=== PATIENT | female | born 1980 | race Caucasian/White ===

== ENCOUNTER → 2017-01-17 | Outpatient (CLI) | payer OTHER ==
--- NOTE | 2017-01-17 16:26 | RAD ---
Abdomen, 2 views, 01/17/2017: History: Abdominal pain Gas is present in large and small bowel in a nonspecific pattern. There is a moderate amount of stool scattered throughout the colon. No free air seen in the abdomen. There is no evidence of organomegaly or abnormal abdominal calcification. IMPRESSION: No acute abdominal abnormality is detected.
== END | disposition home or self-care (01) ==
LOC: DXRAD 13:10
PROVIDERS: ATTEND Family Medicine
DX: R10.9 Unspecified abdominal pain (principal)
CPT/HCPCS: 74020

== ENCOUNTER 2017-01-19 15:01 | Emergency (ER) | payer OTHER ==
[~2017-01-19] VITALS: Ht 165.1 cm; Wt 105.2 kg
[2017-01-19] MEDS ORDERED: fentaNYL PF 100 MCG/2 ML VIAL IV PRN (15:45)
[2017-01-19 15:49] LABS: BILIRUBIN,URINE NEG (NEG); CLARITY,URINE CLOUDY; COLOR,URINE YELLOW; GLUCOSE,URINE NEG (NEG); NITRITE,URINE NEG (NEG); UROBILINOGEN,URINE 0.2 mg/dL (0.2 mg/dL)
[2017-01-19 15:50] LABS: BACTERIA,URINE FEW /HPF (0-FEW); SQUAMOUS EPITHELIAL CELL,UR MOD /LPF
[2017-01-19 15:51] LABS: U PREG PATIENT NEGATIVE (NEG)
[2017-01-19] MEDS ORDERED: ONDANSETRON PF 4 MG/2 ML VIAL. IV ONE (16:00)
[2017-01-19] MEDS ORDERED: KETOROLAC 30 MG/ML VIAL. IV ONE (16:00)
[2017-01-19] MEDS ORDERED: cefTRIAXone SODIUM 1 GM VIAL IV ONE (16:04)
[2017-01-19] MEDS ORDERED: IV NORMAL SALINE 50ML 50 ML ONE (16:04)
[2017-01-19 16:28] VITALS: BP 122/78
[2017-01-19 16:28] LABS: BASO # 0.1 x10^3/uL (0.0-0.2); BASO % 2 % (0-3); EOS # 0.3 x10^3/uL (0.0-0.7); EOS % 3 % (0-3); HEMATOCRIT 38.8 % (36.0-47.0); HEMOGLOBIN 12.9 g/dL (12.0-15.5); LYMPH # 2.7 x10^3/uL (1.0-4.8); LYMPH % 33 % (24-48); MEAN CORPUSCULAR HEMOGLOBIN 30 pg (25-35); MEAN CORPUSCULAR HGB CONC 33 g/dL (31-37); MEAN CORPUSCULAR VOLUME 90 fL (79-100); MONO # 0.6 x10^3/uL (0.0-1.1); MONO % 8 % (0-9); NEUT # 4.6 x10^3uL (1.8-7.7); NEUT % 55 % (31-73); PLATELET COUNT 259 x10^3/uL (140-400); RED BLOOD COUNT 4.31 x10^6/uL (3.50-5.40); RED CELL DISTRIBUTION WIDTH 13.4 % (11.5-14.5); WHITE BLOOD COUNT 8.3 x10^3/uL (4.0-11.0)
[2017-01-19 16:38] LABS: ALBUMIN 3.6 g/dL (3.4-5.0); CALCIUM 8.6 mg/dL (8.5-10.1); CREATININE 0.8 mg/dL (0.6-1.0); DIRECT BILIRUBIN 0.1 mg/dL (0.0-0.2); GFR 81.2; POTASSIUM 3.5 mmol/L (3.5-5.1); TOTAL BILIRUBIN 0.2 mg/dL (0.2-1.0); TOTAL PROTEIN 7.4 g/dL (6.4-8.2)
--- NOTE | 2017-01-19 16:42 | RAD ---
Indication left flank pain nausea and vomiting. Axial images through the abdomen and pelvis were obtained. No IV or gastrointestinal contrast was administered. No prior CT imaging of the abdomen or pelvis is available. The lung bases are clear. The liver and spleen appear unremarkable. The gallbladder appears grossly normal. No pancreatic abnormality is seen. There are no adrenal masses. There are no renal calculi seen on either side. There is no hydronephrosis hydroureter or calcification seen along the course of either ureter. An acute finding in the abdomen is not seen. There is mild to moderate periaortic adenopathy in the upper abdomen. The etiology or clinical significance is uncertain. The appendix is seen in the right lower quadrant and appears normal. An acute finding in the pelvis is not seen. IMPRESSION: No acute finding seen in the abdomen or pelvis. Mild to moderate periaortic adenopathy. The clinical significance or etiology of this finding is not certain PQRS Compliance Statement: One or more of the following individualized dose reduction techniques were utilized for this examination: 1. Automated exposure control 2. Adjustment of the mA and/or kV according to patient size 3. Use of iterative reconstruction technique
--- NOTE | 2017-01-19 17:02 | PHYS DOC ---
General Chief Complaint: FLANK PAIN Stated Complaint: LEFT FLANK PAIN Time Seen by MD: 15:13 Source: patient Exam Limitations: no limitations Problems: History of Present Illness Initial Comments Patient is a 36-year-old female who comes to the emergency department complaining of left flank pain. Patient says she's been battling a virus with recent nausea and vomiting but those symptoms have resolved. She says for the last 3 days she's had left-sided flank pain described as sharp and throbbing. At its worse she says it is 8 out of 10 but her symptoms do come and go intermittently. She says she finds herself unable to find a position of comfort. She saw her doctor Dr. Kirk 3 days ago and was diagnosed with a urinary tract infection and she was prescribed ciprofloxacin. She filled the prescription yesterday and says she has taken a total of 4 doses thus far. She has also taken [id number] Azo which she found to be ineffective and notes that she feels she has seen blood in her urine a few times independent of any discoloration Azo imparts. She is tolerating Cipro well she has no adverse effects. She denies fever chills sweats or myalgias and currently is having no nausea vomiting or diarrhea. She denies unexplained weight loss and night sweats. No dysuria or odor. Timing/Duration: intermittent (3 days) Severity: severe Modifying Factors: improves with other Associated Symptoms: other Allergies: Coded Allergies: No Known Drug Allergies (Unverified , 01/19/17) Past Medical History Medical History: no pertinent history Surgical History: noncontributory (TL, brain) Social History Smoker: cigarettes Alcohol: none Drugs: none Review of Systems Constitutional: denies chills, denies diaphoresis, denies fever, denies malaise Respiratory: denies cough, denies shortness of breath Cardiovascular: denies chest pain, denies palpitations Gastrointestinal: see HPI Genitourinary: see HPI Musculoskeletal: see HPI, denies joint swelling, denies neck pain Psychiatric/Neurological: denies headache, denies numbness, denies paresthesia Physical Exam General Appearance: no apparent distress, obese Eyes: bilateral eye normal inspection, bilateral eye PERRL, bilateral eye EOMI Ear, Nose, Throat: hearing grossly normal, normal ENT inspection, normal pharynx Neck: non-tender, supple Respiratory: normal breath sounds, no respiratory distress Cardiovascular: normal peripheral pulses, regular rate, rhythm Gastrointestinal: normal bowel sounds, non tender, soft, no organomegaly, no pulsatile mass Back: no vertebral tenderness, CVA tenderness (L) Extremities: non-tender, normal inspection 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 PHYSICIAN: SMITHA SHIN DO REASON: left flank pain PROCEDURE: CT ABDOMEN PELVIS WO CONTRAST Indication left flank pain nausea and vomiting. Axial images through the abdomen and pelvis were obtained. No IV or gastrointestinal contrast was administered. No prior CT imaging of the abdomen or pelvis is available. The lung bases are clear. The liver and spleen appear unremarkable. The gallbladder appears grossly normal. No pancreatic abnormality is seen. There are no adrenal masses. There are no renal calculi seen on either side. There is no hydronephrosis hydroureter or calcification seen along the course of either ureter. An acute finding in the abdomen is not seen. There is mild to moderate periaortic adenopathy in the upper abdomen. The etiology or clinical significance is uncertain. The appendix is seen in the right lower quadrant and appears normal. An acute finding in the pelvis is not seen. IMPRESSION: No acute finding seen in the abdomen or pelvis. Mild to moderate periaortic adenopathy. The clinical significance or etiology of this finding is not certain PQRS Compliance Statement: One or more of the following individualized dose reduction techniques were utilized for this examination: 1. Automated exposure control 2. Adjustment of the mA and/or kV according to patient size 3. Use of iterative reconstruction technique DICTATED AND SIGNED BY: YUSEF RAYO MD DATE: 01/19/17 9639 CC: PAUL KIRK MD; SMITHA SHIN DO ~ Lab studies were unremarkable, urinalysis had moderate squamous epithelial contamination and products of infection. Given the positive Oscar sign and the urine findings pyelonephritis is diagnosis. I encouraged her to continue her ciprofloxacin through tomorrow, that would give 72 hours of medication. If no improvement at that time I encouraged her to fill the Bactrim DS prescription and begin that medication discontinuing the Cipro. She expressed agreement and understanding, see departure instructions. Departure Time of Disposition: 16:58 Disposition: 01 HOME, SELF-CARE Diagnosis: left pyelonephritis Condition: GOOD Patient Instructions: Pyelonephritis, Adult, [id number] Additional Instructions: Rest, no strenuous activity. Off work through January 22. Aggressive hydration with Gatorade or water. Continue ciprofloxacin. 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 Prescriptions: Pyridium 100 mg quantity 6, Bactrim DS quantity 20, [place] 7.5 mg quantity 15 Take medications with food. Follow-up with your doctor in 7-10 days for recheck and urine culture results. Return to the ED with new or changing symptoms. SMITHA SHIN DO Jan 19, 2017 17:02
== END 2017-01-19 17:10 | disposition home or self-care (01) ==
LOC: ER 15:01
DX: N12 Tubulo-interstitial nephritis, not specified as acute or chronic (principal); F17.210 Nicotine dependence, cigarettes, uncomplicated
CPT/HCPCS: 36415; 74176; 80048; 80076; 81001; 81025; 83690; 85027; 87086; 96365; 96375; 99285; J0696; J1885; J2405; J3010

== ENCOUNTER → 2017-08-10 | Outpatient (CLI) | payer OTHER ==
--- NOTE | 2017-08-10 11:50 | RAD ---
Abdominal ultrasound, 08/10/2017: History: Abdominal and epigastric pain The gallbladder is within normal limits in size. There is no sonographic evidence of cholelithiasis. The gallbladder krishnamurthy are not thickened. The common hepatic duct is of normal caliber. The visualized portions of the liver, pancreas, spleen and both kidneys are unremarkable. The aorta and inferior vena cava show no abnormality. No free fluid is evident in the abdomen. IMPRESSION: No significant abnormality is detected.
== END | disposition home or self-care (01) ==
LOC: US 09:04
PROVIDERS: ATTEND Physician Assistant
DX: R10.9 Unspecified abdominal pain (principal)
CPT/HCPCS: 76700

== ENCOUNTER 2017-08-16 17:28 | Emergency (ER) | payer OTHER ==
[~2017-08-16] VITALS: Ht 165.1 cm; Wt 117.9 kg
[2017-08-16] MEDS ORDERED: NITROGLYCERIN SUBLINGUAL 0.4 MG BOTTLE OF 25. SL PRN (18:15)
[2017-08-16 18:17] LABS: BASO # 0.1 x10^3/uL (0.0-0.2); BASO % 1 % (0-3); EOS # 0.5 x10^3/uL (0.0-0.7); EOS % 6 % (0-3); HEMATOCRIT 42.7 % (36.0-47.0); HEMOGLOBIN 14.2 g/dL (12.0-15.5); LYMPH # 2.8 x10^3/uL (1.0-4.8); LYMPH % 36 % (24-48); MEAN CORPUSCULAR HEMOGLOBIN 30 pg (25-35); MEAN CORPUSCULAR HGB CONC 33 g/dL (31-37); MEAN CORPUSCULAR VOLUME 90 fL (79-100); MONO # 0.5 x10^3/uL (0.0-1.1); MONO % 6 % (0-9); NEUT % 51 % (31-73); PLATELET COUNT 314 x10^3/uL (140-400); RED BLOOD COUNT 4.76 x10^6/uL (3.50-5.40); RED CELL DISTRIBUTION WIDTH 13.3 % (11.5-14.5); WHITE BLOOD COUNT 7.9 x10^3/uL (4.0-11.0)
[2017-08-16 18:28] LABS: ALBUMIN 4.1 g/dL (3.4-5.0); CALCIUM 9.3 mg/dL (8.5-10.1); CREATININE 0.7 mg/dL (0.6-1.0); GFR 94.2; POTASSIUM 3.9 mmol/L (3.5-5.1); TOTAL BILIRUBIN 0.2 mg/dL (0.2-1.0); TOTAL PROTEIN 8.1 g/dL (6.4-8.2)
[2017-08-16] MEDS ORDERED: ASPIRIN 81 MG TAB.CHEW PO ONE (18:30)
--- NOTE | 2017-08-16 18:59 | PHYS DOC ---
General Chief Complaint: CHEST PAIN Stated Complaint: itching Time Seen by MD: 18:03 Source: patient, old records Exam Limitations: no limitations Problems: History of Present Illness Initial Comments Patient is a 37-year-old female arriving to the emergency department right at 1800 shift change and staff initiated chest pain workup per protocol. Patient "it all started right after my hysterectomy," reports that since her hysterectomy in February she's had intermittent episodes of chest/abdominal and throat burning/discomfort including epigastric discomfort and most the time accompanied by a rash described by the patient as "very itchy hives." Patient has been extensively worked up, she states that she had a recent ultrasound of the gallbladder which was normal (I have obtained results and attached to the chart below) as well as an EGD. Patient states that she was notified over the phone that inflammatory changes were noted on EGD and biopsy results are pending. Patient saw a GI and has a follow-up to go over these results. Patient cannot correlate any foods or medications specifically which incite her symptoms, she describes her chest pain as burning epigastric radiating up her chest and also to the right side of her chest. The symptoms are described as mild to moderate, rashes described as red raised and very itchy off and on her throat or chest and I do observe an allergic type hives rash on the patient's anterior chest. She denies shortness of breath but does experience hoarseness, no cough or wheeze or dyspnea on exertion. No fever chills sweats or myalgias, no nausea, and no left arm or other neck symptoms. "Antacid medications" have helped somewhat in the past and the patient states GI cocktail has also helped but the relief wears off very quickly. Patient follows with Eliu Morillo for PCP. 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 ED vitals: 98.7, 89, 27, 136/79, 100% room air On my evaluation the patient is somewhat anxious, she has a depressed affect and an urticarial allergic type rashes noted on her anterior chest. She is otherwise in no acute distress. PATIENT: DELIA RUIZ ACCOUNT: [id number] : 1980 LOCATION: US AGE: 37 SEX: F EXAM STATUS: REG CLI ORD. PHYSICIAN: NADIRA MORILLO REASON: abd pain epigastric and goes to right side x's~ 1 year PROCEDURE: ABDOMEN COMPLETE Abdominal ultrasound, 08/10/2017: History: Abdominal and epigastric pain The gallbladder is within normal limits in size. There is no sonographic evidence of cholelithiasis. The gallbladder krishnamurthy are not thickened. The common hepatic duct is of normal caliber. The visualized portions of the liver, pancreas, spleen and both kidneys are unremarkable. The aorta and inferior vena cava show no abnormality. No free fluid is evident in the abdomen. IMPRESSION: No significant abnormality is detected. DICTATED AND SIGNED BY: MIROSLAVA CEBALLOS MD DATE: 08/10/17 1146 CC: NADIRA MORILLO; PAUL COTRES MD ~ Timing/Duration: other Severity: moderate Modifying Factors: improves with other Associated Symptoms: rash, other Allergies: Coded Allergies: No Known Drug Allergies (Unverified , 01/19/17) Past Medical History Medical History: GERD (recent EGD waiting results) Surgical History: other (hysterectomy February 2017) Social History Smoker: cigarettes Alcohol: none Drugs: none Review of Systems Constitutional: denies chills, denies diaphoresis, denies fever, denies malaise EENTM: see HPI, denies throat swelling, denies mouth swelling Respiratory: denies cough, denies shortness of breath, denies wheezing Cardiovascular: see HPI, denies palpitations, denies syncope Gastrointestinal: see HPI, denies diarrhea, denies nausea, denies vomiting Musculoskeletal: denies back pain, denies joint swelling, denies neck pain Skin: see HPI Psychiatric/Neurological: denies headache, denies numbness, denies paresthesia Immunological/Allergic: see HPI Physical Exam General Appearance: mild distress (anxious) Ear, Nose, Throat: hearing grossly normal, normal ENT inspection, normal pharynx (no soft tissue swelling noted airway is widely patent) Neck: non-tender, full range of motion, supple (no stridor) Respiratory: normal breath sounds, no respiratory distress Cardiovascular: normal peripheral pulses, regular rate, rhythm Gastrointestinal: normal bowel sounds, non tender, soft Back: no CVA tenderness, no vertebral tenderness Extremities: non-tender, normal inspection Neurologic/Psychiatric: 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 Chest AP: Cardiac silhouette and mediastinal structures appear to be normal no effusions or discrete consolidations no acute cardiopulmonary process. Interpreted by me. 1903: Labs reviewed, eosinophils elevated at 6% twice normal (supportive of allergic etiology) otherwise labs unremarkable. Patient is now receiving Solu- Medrol Benadryl and Pepcid Will recheck in about 45-60 minutes 4 medication efficacy. Patient has no new or progressive symptoms no improvement of symptoms with nitroglycerin sublingually. Her vital signs remained stable and she will have a prolonged ED course as we're waiting for medication efficacy. 2030: Patient rechecked, her rash has completely resolved. She states that her epigastric and upper back symptoms are persistent and she refuses GI cocktail as she knows that it will resolve her symptoms but only temporarily. Additionally due to the temporal nature of her symptom onset today (1-2 hours prior to ED arrival) I did offer the patient observation status admission to follow serial cardiac enzymes and she has refused this. At this point she does report that she has 3 relatives with lupus, and she shows me a picture on her phone exhibiting a classic butterfly rash. I spent a great deal of time discussing both allergic and rheumatologic possible etiologies for her symptoms. Once again the patient does refuse admission and agrees to follow-up with Eliu Morillo tomorrow morning for further rheumatologic and allergic outpatient evaluation. She refuses any symptomatic medications to take with her in the interim. I discussed signs and symptoms to monitor as well as indications for urgent return to the department. Patient's questions were answered to her satisfaction and she expressed agreement and understanding with the treatment plan. She was advised to stop smoking. Departure Time of Disposition: 20:28 Disposition: 01 HOME, SELF-CARE Diagnosis: rash, epigastric/upper back discomfort Patient Instructions: Allergy Tests, Lupus Additional Instructions: As discussed you have chosen to go home versus observation status admission. Additionally as discussed please review the patient education materials regarding allergy testing and lupus. Continue current medications and follow up with Eliu Morillo tomorrow morning for further outpatient workup for rheumatologic/allergic cause of symptoms. Return to ED with new or changing symptoms. LIZETT SHIN DO Aug 16, 2017 18:59
[2017-08-16] MEDS ORDERED: methylPREDNISolone SOD SUCC PF 125 MG/2 ML VIAL. IV ONE (19:15)
[2017-08-16] MEDS ORDERED: FAMOTIDINE 20 MG/2 ML VIAL IVP ONE (19:15)
[2017-08-16] MEDS ORDERED: diphenhydrAMINE 50 MG/ML VIAL IVP ONE (19:15)
[2017-08-16 20:40] VITALS: BP 123/86
--- NOTE | 2017-08-17 00:55 | EKG ---
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
--- NOTE | 2017-08-17 07:49 | RAD ---
Exam: AP portable chest. History: Chest pain beginning this morning. Comparison: None. Findings: The heart and mediastinal structures are within normal limits for size. Lungs are without infiltrate. No pneumothorax or pleural effusion is appreciated. Impression: 1. No acute cardiopulmonary process.
== END 2017-08-16 20:40 | disposition home or self-care (01) ==
LOC: ER 17:28
DX: R21 Rash and other nonspecific skin eruption (principal); L29.9 Pruritus, unspecified; R10.13 Epigastric pain; K21.9 Gastro-esophageal reflux disease without esophagitis; F17.210 Nicotine dependence, cigarettes, uncomplicated; Z90.710 Acquired absence of both cervix and uterus
CPT/HCPCS: 36415; 71045; 80053; 82550; 83690; 83880; 84484; 85025; 85379; 93005; 96374; 96375; 99285; J1200; J2930; S0028

== ENCOUNTER → 2018-12-04 | Outpatient (CLI) | payer OTHER ==
--- NOTE | 2018-12-04 11:23 | RAD ---
EXAM: Right foot, 2 views. HISTORY: Pain. COMPARISON: None. FINDINGS: 2 views of the right foot are obtained. There is no fracture, dislocation or subluxation. IMPRESSION: No acute osseous finding. Electronically signed by: Janett White MD (12/04/2018 11:20 AM) [place] [id number]
== END | disposition home or self-care (01) ==
LOC: PMG 11:05
PROVIDERS: ATTEND Physician Assistant
DX: M79.671 Pain in right foot (principal)
CPT/HCPCS: 73620

== ENCOUNTER 2019-01-28 10:12 | Inpatient (IN) | payer OTHER ==
[~2019-01-28] VITALS: Ht 152.4 cm; Wt 112.5 kg
[2019-01-28 10:43] LABS: BASO % 1 % (0-3); EOS # 0.2 x10^3/uL (0.0-0.7); EOS % 3 % (0-3); HEMATOCRIT 42.4 % (36.0-47.0); HEMOGLOBIN 13.9 g/dL (12.0-15.5); LYMPH # 2.3 x10^3/uL (1.0-4.8); LYMPH % 31 % (24-48); MEAN CORPUSCULAR HEMOGLOBIN 31 pg (25-35); MEAN CORPUSCULAR HGB CONC 33 g/dL (31-37); MEAN CORPUSCULAR VOLUME 95 fL (79-100); MONO # 0.4 x10^3/uL (0.0-1.1); MONO % 6 % (0-9); NEUT # 4.4 x10^3uL (1.8-7.7); NEUT % 60 % (31-73); PLATELET COUNT 299 x10^3/uL (140-400); RED BLOOD COUNT 4.47 x10^6/uL (3.50-5.40); RED CELL DISTRIBUTION WIDTH 13.3 % (11.5-14.5); WHITE BLOOD COUNT 7.4 x10^3/uL (4.0-11.0)
--- NOTE | 2019-01-28 10:48 | RAD ---
Chest, PA and Lateral: Technique: PA and lateral views of the chest were obtained. History: Chest pain. Comparison: 01/28/2019. Findings: Mild cardiomegaly. Faint scattered patchy airspace opacities identified in the bibasilar lungs likely atelectasis or infiltrates. IMPRESSION: Faint scattered patchy airspace opacities identified in the bilateral lungs likely atelectasis or infiltrates. Electronically signed by: Natalio Prince MD (01/28/2019 10:45 AM) [facility]
[2019-01-28] MEDS ORDERED: IPRATRPIUM/ALBUTEROL 0.5/2.5MG 3 ML NEBU. NEB ONE (11:00)
[2019-01-28] MEDS ORDERED: ASPIRIN 81 MG TAB.CHEW PO ONE (11:00)
[2019-01-28 11:03] LABS: ALBUMIN/GLOBULIN RATIO 1.3 (1.0-1.7); CALCIUM 9.4 mg/dL (8.5-10.1); CREATININE 0.7 mg/dL (0.6-1.0); GFR 93.6; MAGNESIUM 1.8 mg/dL (1.8-2.4); POTASSIUM 4.3 mmol/L (3.5-5.1); TOTAL BILIRUBIN 0.3 mg/dL (0.2-1.0); TOTAL PROTEIN 7.2 g/dL (6.4-8.2)
[2019-01-28] MEDS: NITROGLYCERIN SUBLINGUAL 0.4 MG BOTTLE OF 25. SL PRN ×2 (11:04→13:02)
[2019-01-28 11:15] LABS: AMPHETAMINE/METHAMPHETAMINE NEG (NEG); BARBITURATES NEG (NEG); BENZODIAZEPINES NEG (NEG); CANNABINOIDS NEG (NEG); COCAINE NEG (NEG); METHADONE NEG (NEG); OPIATES NEG (NEG); PHENCYCLIDINE NEG (NEG)
[2019-01-28] MEDS ORDERED: IV NORMAL SALINE 1,000ML 1,000 ML IV ONE (11:30)
[2019-01-28] MEDS ORDERED: cefTRIAXone SODIUM 1 GM VIAL ONE (11:47)
[2019-01-28] MEDS ORDERED: IV NORMAL SALINE 100ML 100 ML ONE (11:48)
[2019-01-28] MEDS ORDERED: KETOROLAC 30 MG/ML VIAL. IV ONE (12:00)
[2019-01-28] MEDS ORDERED: methylPREDNISolone SOD SUCC PF 125 MG/2 ML VIAL. IV ONE (12:00)
--- NOTE | 2019-01-28 12:05 | PHYS DOC ---
Past History Past Medical History: Other Past Surgical History: Hysterectomy Smoking: Quit Greater Than 1 Year Additional Smoking Information: smoked for 10 years Alcohol Use: None Drug Use: None Adult General Chief Complaint Chief Complaint: CHEST PAIN HPI HPI Patient is a 38 year old female who presents with complaining of chest pain. Patient complaining of cough and congestion and ear pain since yesterday with chest tightness and shortness of breath. Patient states the pain radiated to her back and complaining of dizziness and episodes of palpitation. Patient rated her pain 8/10 and states the pain getting worse with cough and warm environment. Patient did not take any pain medication. She quit smoking several years ago. Review of Systems Review of Systems Constitutional: Denies fever or chills [] Eyes: Denies change in visual acuity, redness, or eye pain [] HENT: Force nasal congestion and sore throat and earache Respiratory: Reports cough and shortness of breath Cardiovascular: No additional information not addressed in HPI [] GI: Denies abdominal pain, nausea, vomiting, bloody stools or diarrhea [] : Denies dysuria or hematuria [] Musculoskeletal: Denies back pain or joint pain [] Integument: Denies rash or skin lesions [] Neurologic: Denies headache, focal weakness or sensory changes [] Endocrine: Denies polyuria or polydipsia [] All other systems were reviewed and found to be within normal limits, except as documented in this note. Current Medications Current Medications Current Medications Medications (Trade) Dose Ordered Sig/Higinio Start Time Stop Time Status Last Admin Dose Admin Albuterol/ Ipratropium (Duoneb) 3 ml 1X ONCE 01/28/19 11:00 01/28/19 11:01 DC 01/28/19 11:05 3 ML Aspirin (Children'S Aspirin) 324 mg 1X ONCE 01/28/19 11:00 01/28/19 11:01 DC 01/28/19 11:04 324 MG Ceftriaxone Sodium 1 gm/ Sodium Chloride 50 ml @ 100 mls/hr 1X ONCE 01/28/19 11:30 01/28/19 11:59 UNV Ceftriaxone Sodium (Rocephin) 1 gm STK-MED ONCE 01/28/19 11:47 01/28/19 11:48 DC Ketorolac Tromethamine (Toradol 30mg Vial) 30 mg 1X ONCE 01/28/19 11:30 01/28/19 11:31 UNV Methylprednisolone Sodium Succinate (SOLU-Medrol 125MG VIAL) 125 mg 1X ONCE 01/28/19 11:30 01/28/19 11:31 UNV Nitroglycerin (Nitrostat) 0.4 mg PRN Q5MIN PRN 01/28/19 11:00 01/29/19 10:59 01/28/19 11:04 0.4 MG Sodium Chloride 1,000 ml @ 1,000 mls/hr 1X ONCE 01/28/19 11:30 01/28/19 12:29 UNV Allergies Allergies Allergies Coded Allergies Type Severity Reaction Last Updated Verified shellfish derived Allergy Mild Hives 01/28/19 Yes Physical Exam Physical Exam Constitutional: Well developed, well nourished, mild distress, non-toxic appearance. [] HENT: Normocephalic, atraumatic, bilateral tympanic membrane erythema oropharynx moist, no oral exudates, nose normal. [] Eyes: PERRLA, EOMI, conjunctiva normal, no discharge. [] Neck: Normal range of motion, no tenderness, supple, no stridor. [] Cardiovascular:Heart rate regular rhythm, no murmur [] Lungs & Thorax: No respiratory distress, basilar rhonchi Abdomen: Bowel sounds normal, soft, no tenderness, no masses, no pulsatile masses. [] Skin: Warm, dry, no erythema, no rash. [] Back: No tenderness, no CVA tenderness. [] Extremities: No tenderness, no cyanosis, no clubbing, ROM intact, no edema. [] Neurologic: Alert and oriented X 3, normal motor function, normal sensory function, no focal deficits noted. [] Psychologic: Affect normal, judgement normal, mood normal. [] Current Patient Data Vital Signs Vital Signs Date Time Temp Pulse Resp B/P (MAP) Pulse Ox O2 Delivery O2 Flow Rate FiO2 01/28/19 11:04 84 01/28/19 10:24 97.9 20 100 Room Air Lab Results Laboratory Tests Test 01/28/19 10:30 01/28/19 10:53 White Blood Count 7.4 x10^3/uL (4.0-11.0) Red Blood Count 4.47 x10^6/uL (3.50-5.40) Hemoglobin 13.9 g/dL (12.0-15.5) Hematocrit 42.4 % (36.0-47.0) Mean Corpuscular Volume 95 fL (79-100) Mean Corpuscular Hemoglobin 31 pg (25-35) Mean Corpuscular Hemoglobin Concent 33 g/dL (31-37) Red Cell Distribution Width 13.3 % (11.5-14.5) Platelet Count 299 x10^3/uL (140-400) Neutrophils (%) (Auto) 60 % (31-73) Lymphocytes (%) (Auto) 31 % (24-48) Monocytes (%) (Auto) 6 % (0-9) Eosinophils (%) (Auto) 3 % (0-3) Basophils (%) (Auto) 1 % (0-3) Neutrophils # (Auto) 4.4 x10^3uL (1.8-7.7) Lymphocytes # (Auto) 2.3 x10^3/uL (1.0-4.8) Monocytes # (Auto) 0.4 x10^3/uL (0.0-1.1) Eosinophils # (Auto) 0.2 x10^3/uL (0.0-0.7) Basophils # (Auto) 0.0 x10^3/uL (0.0-0.2) Sodium Level 138 mmol/L (136-145) Potassium Level 4.3 mmol/L (3.5-5.1) Chloride Level 101 mmol/L (98-107) Carbon Dioxide Level 27 mmol/L (21-32) Anion Gap 10 (6-14) Blood Urea Nitrogen 9 mg/dL (7-20) Creatinine 0.7 mg/dL (0.6-1.0) Estimated GFR (Cockcroft-Gault) 93.6 BUN/Creatinine Ratio 13 (6-20) Glucose Level 87 mg/dL (70-99) Calcium Level 9.4 mg/dL (8.5-10.1) Magnesium Level 1.8 mg/dL (1.8-2.4) Total Bilirubin 0.3 mg/dL (0.2-1.0) Aspartate Amino Transferase (AST) 15 U/L (15-37) Alanine Aminotransferase (ALT) 19 U/L (14-59) Alkaline Phosphatase 88 U/L (46-116) Creatine Kinase 62 U/L (26-192) Troponin I Quantitative < 0.017 ng/mL (0-0.055) AI-Mwp-Z-Type Natriuretic Peptide 50 pg/mL (0-124) Total Protein 7.2 g/dL (6.4-8.2) Albumin 4.0 g/dL (3.4-5.0) Albumin/Globulin Ratio 1.3 (1.0-1.7) Lipase 56 U/L (73-393) L Urine Opiates Screen Neg (NEG) Urine Methadone Screen Neg (NEG) Urine Barbiturates Neg (NEG) Urine Phencyclidine Screen Neg (NEG) Urine Amphetamine/Methamphetamine Neg (NEG) Urine Benzodiazepines Screen Neg (NEG) Urine Cocaine Screen Neg (NEG) Urine Cannabinoids Screen Neg (NEG) Urine Ethyl Alcohol Neg (NEG) EKG EKG EKG interpreted by me. EKG at 1021 showed normal sinus rhythm at rate of 69, normal TX and QT interval, no acute ST-T wave abnormalities. Radiology/Procedures Radiology/[place] [address] IMAGING REPORT Signed PATIENT: EDLIA HERNÁNDEZ ACCOUNT: [id number] : 1980 LOCATION: ER AGE: 38 SEX: F EXAM STATUS: REG ER ORD. PHYSICIAN: AVERY BOWEN MD REASON: chest pain PROCEDURE: CHEST PA & LATERAL Chest, PA and Lateral: Technique: PA and lateral views of the chest were obtained. History: Chest pain. Comparison: 01/28/2019. Findings: Mild cardiomegaly. Faint scattered patchy airspace opacities identified in the bibasilar lungs likely atelectasis or infiltrates. IMPRESSION: Faint scattered patchy airspace opacities identified in the bilateral lungs likely atelectasis or infiltrates. Electronically signed by: Natalio Prince MD (01/28/2019 10:45 AM) [facility] DICTATED AND SIGNED BY: NATALIO PRINCE MD DATE: 01/28/19 1045 CC: AVERY BOWEN MD; NADIRA MORILLO ~ Course & Med Decision Making Course & Med Decision Making Pertinent Labs and Imaging studies reviewed. (See chart for details) Evaluation of patient in ER showed 38-year-old female patient with complaining of URI symptoms, cough and congestion associated with chest pain since yesterday. Patient had unremarkable labs. Chest x-ray showed possible infiltration. Patient treated with IV fluid and Toradol and Rocephin in ER and felt better. Patient was advised to follow up with her primary care physician and return to ER if not getting better. @1445: Patient complaining of pain at time of discharge and treated with hydrocodone. Patient stated her pain did not get better and getting worse. I offered patient hospitalization but she refused but later on agreed to hospitalization. Dr. Vela accepted admission at 1440. Dragon Disclaimer Dragon Disclaimer This electronic medical record was generated, in whole or in part, using a voice recognition dictation system. Departure Departure: Impression: Primary Impression: Acute chest pain Additional Impressions: Pneumonia Morbid obesity Disposition: ADMITTED INPATIENT Admitting Physician: Alex Vela (excepted admission at 1440) Condition: IMPROVED Referrals: NADIRA MORILLO (PCP) HEART Score for Chest Pain PTs The HEART Score for CP Pts HEART Score for Chest Pain: HEART Score for Chest Pain Response (Comments) Value History Slighlty/Non-Suspicious 0 ECG Normal 0 Age < 45 0 Risk Factors 1 or 2 Risk Factors 1 Troponin < Normal Limit 0 Total 1 Risk Factors: Risk Factors: DM, Current or recent (<one month) smoker, HTN, HLP, family history of CAD, obesity. Risk Scores: Score 0 - 3: 2.5% MACE over next 6 weeks - Discharge Home Score 4 - 6: 20.3% MACE over next 6 weeks - Admit for Clinical Observation Score 7 - 10: 72.7% MACE over next 6 weeks - Early Invasive Strategies Problem Qualifiers Additional Impressions: Pneumonia Pneumonia type: due to unspecified organism Laterality: bilateral Lung location: unspecified part of lung Qualified Codes: J18.9 - Pneumonia, unspecified organism AVERY BOWEN MD Jan 28, 2019 12:05
[2019-01-28] MEDS ORDERED: HYDR115S2 PO (12:19)
[2019-01-28] MEDS ORDERED: ALBU2.5V8 INH (12:19)
[2019-01-28] MEDS ORDERED: AZIT250T PO (12:19)
[2019-01-28] MEDS ORDERED: HYDROcodone/APAP 5/325MG 1 TAB TABLET PO ONE (12:45)
--- NOTE | 2019-01-28 15:39 | HP ---
ADMIT DATE: 01/28/2019 ATTENDING PHYSICIAN: Dr. Cai. CHIEF COMPLAINT: Anterior chest pain. HISTORY OF PRESENT ILLNESS: The patient, age 38, has had a 2-day history of anterior chest wall pain, quite severe. She has had a dry nonproductive cough, sore throat and chest x-ray in the ED demonstrated some linear atelectasis and early infiltrate in the right lower lobe. She had significant pleuritic type chest pain. She had a negative workup for blood clots. It is noncardiac in nature. She was given several doses of IV fluids, nebulizer therapy, steroids without any improvement. Antibiotics were administered. She will be admitted to the inpatient unit with pleuritic type chest pain related to community-acquired pneumonia. PAST MEDICAL HISTORY: Significant for systemic lupus. MEDICATIONS: She takes Plaquenil daily. 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 PAST SURGICAL HISTORY: Hysterectomy for precancerous cells. SOCIAL HISTORY: She is a nonsmoker, nondrinker. She has 3 children, ages 16, 18 and 19. FAMILY HISTORY: Father at age 48 of complications of cirrhosis and end-stage liver disease. Mother is still alive at age 68. ALLERGIES: She has allergies to SHELLFISH. REVIEW OF SYSTEMS: Significant for localized cough, nonproductive in nature, no chills, generalized weakness, severe localized pain. She is morbidly obese. She denied any nausea, vomiting, diarrhea. All other systems were reviewed and determined to be negative. PHYSICAL EXAMINATION: GENERAL: When I saw her, this is a pleasant female, but with a very flat affect. INITIAL VITAL SIGNS: In the ED showed that she was afebrile, blood pressure was 140 systolic, heart rate was 85 and regular. HEENT: Without trauma. The pupils are reactive. Sclerae nonicteric. Oropharynx clear. NECK: Supple. No bruits identified. LUNGS: Otherwise clear, but she has minimal rhonchi in the upper airways. There is no wheezing identified. CARDIOVASCULAR: Showed distant heart tones. No gallops or murmurs. Peripheral pulses are palpable and full. ABDOMEN: Obese, protuberant. No organomegaly. Bowel sounds were hypoactive. EXTREMITIES: Showed no cyanosis or edema. NEUROLOGIC: Focally intact. No deficits. PERTINENT LABORATORY DATA AND X-RAY STUDIES: The chest x-ray showed minimal infiltrate in the right lower lobe. Cultures have been ordered. CBC shows stable white count. ASSESSMENT: 1. This 38-year-old female who has community-acquired pneumonia, associated pleurisy with significant symptoms. 2. History of hysterectomy. 3. Generalized weakness. PLAN: 1. Admit to the inpatient unit. 2. Solu-Medrol as ordered. 3. Antibiotics as ordered. 4. Nebulizer therapy. 5. Pain meds p.r.n. MONISHA CAI MD DR: KIANNA/ranjan JOB#: [id number] / [id number]
[2019-01-28 16:18] VITALS: BP 141/91
[2019-01-28] MEDS ORDERED: ALBUTEROL SULFATE 2.5 MG/3 ML NEBU. NEB PRN (16:30)
[2019-01-28] MEDS: HYDROmorphone PF 1 MG/ML DISP.SYRIN IVP PRN ×3 (16:42→20:26)
[2019-01-28 20:21] VITALS: BP 146/96
[2019-01-28] MEDS: methylPREDNISolone SOD SUCC PF 125 MG/2 ML VIAL. IV SCH (20:26)
[2019-01-28 23:25] VITALS: BP 142/86
[2019-01-29] MEDS: HYDROmorphone PF 1 MG/ML DISP.SYRIN IVP PRN ×4 (01:52→20:16)
[2019-01-29] MEDS: methylPREDNISolone SOD SUCC PF 125 MG/2 ML VIAL. IV SCH ×2 (04:50→12:00)
[2019-01-29] MEDS ORDERED: HYDR200T5 PO (04:53)
[2019-01-29] MEDS ORDERED: LISD70CA5 PO (04:53)
[2019-01-29 05:39] VITALS: BP 126/72
[2019-01-29] MEDS ORDERED: NON FORMULARY ITEM (Lisdexamfetamine Dimesylate (Vyvanse) 70 MG) PO PRN (07:30)
[2019-01-29] MEDS: LACTOBACILLUS RHAMNOSUS GG 1 CAPSULE. PO SCH ×2 (09:18→20:17)
[2019-01-29] MEDS: ALBUTEROL SULFATE 2.5 MG/3 ML NEBU. NEB SCH ×4 (09:18→21:02)
[2019-01-29] MEDS: HYDROXYCHLOROQUINE 200 MG TABLET PO SCH ×2 (09:18→20:17)
[2019-01-29] MEDS: ONDANSETRON PF 4 MG/2 ML VIAL. IV PRN (09:52)
[2019-01-29 11:05] VITALS: BP 127/73
[2019-01-29] MEDS: methylPREDNISolone SOD SUCC PF 40 MG/ML VIAL. IV SCH ×2 (12:31→20:16)
[2019-01-29] MEDS: NAPROXEN 500 MG TABLET PO PRN (14:32)
[2019-01-29 15:24] VITALS: BP 136/79
[2019-01-29 20:12] VITALS: BP 120/72
--- NOTE | 2019-01-29 21:22 | PN ---
DATE: 01/29/2019 CHIEF COMPLAINT: Chest pain and pleurisy. SUBJECTIVE: The patient was doing better last night. She has had several doses of Solu-Medrol. This morning, she is quite symptomatic, complaining of pain, getting her narcotics on a regular schedule. She states her lungs are on fire. PHYSICAL EXAMINATION: VITAL SIGNS: Her blood pressure is 126/72. She was afebrile. Chest x-ray yesterday showed bilateral airspace opacity. Her hemoglobin is 13.9 grams with white count of 7400. HEENT: Head is without trauma. Pupils are reactive. Sclerae nonicteric. Oropharynx clear. NECK: Supple. No bruits. LUNGS: Minimal rhonchi at bases. CARDIOVASCULAR: Show irregular heart tones. No obvious gallops. Peripheral pulses are palpable and full. ABDOMEN: Obese, protuberant. No organomegaly. Bowel sounds are hypoactive. EXTREMITIES: Show no cyanosis or edema. NEUROLOGIC: Focally intact. Very flat affect. ASSESSMENT: 1. A 38-year-old female with community-acquired pneumonia. 2. Associated pleurisy with symptomatic pleuritic chest pain. 3. History of lupus. 4. History of hysterectomy. 5. Generalized weakness. PLAN: 1. Continue steroids as ordered. 2. Continue antibiotics. 3. Followup chest x-ray in the morning. 4. Nebulizer therapy scheduled. 5. Pain control. MONISHA CAI MD DR: KIANNA/ranjan JOB#: [id number] / [id number]
[2019-01-29 23:21] VITALS: BP 134/82
[2019-01-30] MEDS: methylPREDNISolone SOD SUCC PF 40 MG/ML VIAL. IV SCH ×3 (05:06→20:48)
[2019-01-30] MEDS: HYDROmorphone PF 1 MG/ML DISP.SYRIN IVP PRN ×4 (05:06→16:18)
[2019-01-30 05:14] VITALS: BP 129/85
[2019-01-30] MEDS: ALBUTEROL SULFATE 2.5 MG/3 ML NEBU. NEB SCH ×4 (06:00→20:09)
[2019-01-30] MEDS: ONDANSETRON PF 4 MG/2 ML VIAL. IV PRN ×3 (07:58→19:52)
--- NOTE | 2019-01-30 08:18 | RAD ---
CHEST PA LATERAL CLINICAL INDICATION: Pneumonia. Chest pain. COMPARISON: 01/28/2019. FINDINGS: Heart is normal in size. Prominent bilateral bronchovascular markings are seen. No focal consolidation. No pneumothorax or pleural effusion. Visualized bony thorax is within normal limits. IMPRESSION: Prominence of bilateral bronchovascular markings may be secondary to pulmonary vascular congestion or bronchitis. Electronically signed by: Issac Prescott DO (01/30/2019 8:15 AM) [facility]
[2019-01-30] MEDS: HYDROXYCHLOROQUINE 200 MG TABLET PO SCH ×2 (10:13→20:48)
[2019-01-30] MEDS: LACTOBACILLUS RHAMNOSUS GG 1 CAPSULE. PO SCH ×2 (10:13→20:48)
--- NOTE | 2019-01-30 11:08 | EKG ---
[address] [address] Test Date: 2019-01-28 Test Time: 10:21:28 Pat Name: DELIA HERNÁNDEZ Department: Room: Gender: F Pattern Filer: : 1980 Requested By: AVERY BOWEN Order Number: [id number] Reading MD: Measurements Intervals [place] Rate: 69 P: 36 IN: 150 QRS: 32 QRSD: 84 T: 14 QT: 370 QTc: 398 Interpretive Statements SINUS RHYTHM NO SPECIFIC ECG ABNORMALITIES RI6.01 No previous ECG available for comparison
[2019-01-30 11:45] VITALS: BP 147/83
--- NOTE | 2019-01-30 12:28 | PN ---
DATE: 01/30/2019 SUBJECTIVE: Chest pain with weakness. SUBJECTIVE: The patient is still symptomatic. She is very uncomfortable. She has pain meds ordered. She is a bit groggy from the medications, but she has poor appetite. A followup x-ray has been done this morning. OBJECTIVE: VITAL SIGNS: Her blood pressure is 129/85, pulse is 86 and regular. She is afebrile. Followup chest x-ray showed clearing of the airspace infiltrates. No new infiltrates identified. Costophrenic angles are clear and sharp. Heart size is within normal range. Admission white count was 7400. Chemistry panel was all within normal range. Cardiac enzymes were negative 3 sets. HEENT: Head is without trauma. Pupils are reactive. Sclerae nonicteric. Oropharynx is clear. NECK: Supple. LUNGS: Fairly good air movement. Respirations are shallow. She has no further rhonchi identified no wheezing. CARDIOVASCULAR: Showed regular heart tones. No obvious gallops. Peripheral pulses are palpable. ABDOMEN: Obese, protuberant. No organomegaly. Bowel sounds are hypoactive. EXTREMITIES: Showed no cyanosis or edema. NEUROLOGIC: Focally intact, very sleepy from her meds. ASSESSMENT: 1. A 38-year-old female with community-acquired pneumonia. 2. Associated pleurisy. 3. History of lupus. 4. Generalized weakness. 5. Hysterectomy. PLAN: 1. Continue steroids as ordered. 2. Continue antibiotics. 3. Nebulizer therapy. 4. Pain and nausea control. MONISHA CAI MD DR: KIANNA/ranjan JOB#: [id number] / [id number]
[2019-01-30] MEDS ORDERED: PROCHLORPERAZINE 10 MG/2 ML VIAL. IV PRN (12:45)
[2019-01-30] MEDS: MAG HYDROX/AL HYDROX/SIMETH 30 ML ORAL.SUSP PO PRN (13:03)
[2019-01-30 15:04] VITALS: BP 124/72
[2019-01-30 19:03] VITALS: BP 139/81
[2019-01-30] MEDS: NAPROXEN 500 MG TABLET PO PRN (19:53)
[2019-01-31] MEDS: NAPROXEN 500 MG TABLET PO PRN ×2 (01:42→15:39)
[2019-01-31] MEDS: ALBUTEROL SULFATE 2.5 MG/3 ML NEBU. NEB SCH ×4 (04:56→21:18)
[2019-01-31] MEDS: methylPREDNISolone SOD SUCC PF 40 MG/ML VIAL. IV SCH (05:02)
[2019-01-31 05:14] VITALS: BP 117/70
[2019-01-31 06:25] LABS: BASO % 0 % (0-3); EOS % 0 % (0-3); HEMATOCRIT 39.4 % (36.0-47.0); HEMOGLOBIN 12.5 g/dL (12.0-15.5); LYMPH # 1.4 x10^3/uL (1.0-4.8); LYMPH % 6 % (24-48); MEAN CORPUSCULAR HEMOGLOBIN 31 pg (25-35); MEAN CORPUSCULAR HGB CONC 32 g/dL (31-37); MEAN CORPUSCULAR VOLUME 96 fL (79-100); MONO % 4 % (0-9); NEUT # 19.7 x10^3uL (1.8-7.7); NEUT % 89 % (31-73); PLATELET COUNT 295 x10^3/uL (140-400); RED BLOOD COUNT 4.11 x10^6/uL (3.50-5.40); RED CELL DISTRIBUTION WIDTH 13.6 % (11.5-14.5); WHITE BLOOD COUNT 22.2 x10^3/uL (4.0-11.0)
[2019-01-31 06:33] LABS: ALBUMIN 3.9 g/dL (3.4-5.0); ALBUMIN/GLOBULIN RATIO 1.3 (1.0-1.7); CALCIUM 9.4 mg/dL (8.5-10.1); CREATININE 0.8 mg/dL (0.6-1.0); GFR 80.3; POTASSIUM 4.3 mmol/L (3.5-5.1); TOTAL BILIRUBIN 0.3 mg/dL (0.2-1.0)
[2019-01-31] MEDS: PSEUDOEPHEDRINE ER 120 MG TABLET.ER. PO SCH ×2 (09:25→20:42)
[2019-01-31] MEDS: CETIRIZINE HCL 10 MG TABLET PO SCH (09:25)
[2019-01-31] MEDS: LACTOBACILLUS RHAMNOSUS GG 1 CAPSULE. PO SCH ×2 (09:25→20:41)
[2019-01-31] MEDS: HYDROXYCHLOROQUINE 200 MG TABLET PO SCH ×2 (09:25→20:42)
[2019-01-31] MEDS: ONDANSETRON PF 4 MG/2 ML VIAL. IV PRN (09:28)
[2019-01-31 09:41] LABS: % LYMPHS 10 % (24-48); % MONOS 5 % (0-10); % SEGS 85 % (35-66); PLT ESTIMATE ADEQUATE (ADEQUATE)
[2019-01-31 10:36] VITALS: BP 148/80
[2019-01-31] MEDS ORDERED: oxyCODONE/APAP 10/325 1 TAB TABLET PO PRN (10:45)
[2019-01-31] MEDS: HYDROmorphone PF 1 MG/ML DISP.SYRIN IVP PRN ×3 (12:04→20:42)
[2019-01-31] MEDS: methylPREDNISolone SOD SUCC PF 125 MG/2 ML VIAL. IV SCH ×2 (13:11→21:50)
[2019-01-31 15:00] VITALS: BP 140/59
[2019-01-31 19:30] VITALS: BP 152/93
--- NOTE | 2019-02-01 02:01 | PN ---
DATE: 01/31/2019 CHIEF COMPLAINT: Chest pain and weakness. SUBJECTIVE: The patient complains now of sinus pressure. She is moaning, lying in bed with a wet washcloth over her eyes. , sister and mom are at the bedside. Chest x-ray yesterday showed clearing of her infiltrates. She is symptomatic and unable to get out of bed. She denied any chest pain; however, she is getting her narcotics on the clock as ordered from a p.r.n. basis. OBJECTIVE FINDINGS: PHYSICAL EXAMINATION: VITAL SIGNS: Today showed a blood pressure of 117/70 mmHg, her pulse is 84 and regular. She is on the monitor and has a sinus rhythm. Her temperature is 97.7 degrees Fahrenheit, oxygen saturation 95% on room air. HEENT: Her eyes are shut. Her pupils are reactive. Sclerae are nonicteric. The oropharynx is clear. NECK: Supple. There are no bruits. LUNGS: Fairly good breath sounds. I did not appreciate any rhonchi. CARDIOVASCULAR: Showed distant heart tones. No obvious gallops. Peripheral pulses are palpable and full. ABDOMEN: Obese, protuberant. No guarding or rebound tenderness. No organomegaly. Bowel sounds were hypoactive. EXTREMITIES: Show no cyanosis or edema. NEUROLOGIC: Focally intact. The patient remains sleepy with a flat affect. LABORATORY DATA: Laboratory studies were reviewed. Today, her hemoglobin is 12.5 g/dL. White count is up to 22,000 due to margination of white cells from steroids. Chemistry panel showed stable creatinine of 0.8 mg/dL. Potassium 4.3 mEq, sodium 143 mEq/L. ASSESSMENT: 1. A 38-year-old female with community-acquired pneumonia. 2. History of lupus. 3. Significant pleurisy. 4. Nausea and vomiting. 5. Generalized debilitation. 6. Underlying depression in my opinion. PLAN: 1. Continue antibiotics ordered. 2. Zyrtec and pseudoephedrine ordered for sinus congestion. 3. Diet as tolerated. 4. Decrease Solu-Medrol to ____ mg every 8 hours. 5. Pain and nausea control. The patient remains symptomatic despite improvement of her vital signs and chest x-ray. MONISHA CAI MD DR: KIANNA/ranjan JOB#: [id number] / [id number]
[2019-02-01] MEDS: HYDROmorphone PF 1 MG/ML DISP.SYRIN IVP PRN ×4 (02:16→20:49)
[2019-02-01] MEDS: ALBUTEROL SULFATE 2.5 MG/3 ML NEBU. NEB SCH ×4 (05:13→19:27)
[2019-02-01] MEDS: methylPREDNISolone SOD SUCC PF 125 MG/2 ML VIAL. IV SCH ×2 (06:12→17:18)
[2019-02-01 06:20] VITALS: BP 163/95
[2019-02-01] MEDS: LACTOBACILLUS RHAMNOSUS GG 1 CAPSULE. PO SCH ×2 (07:15→20:48)
[2019-02-01] MEDS: CETIRIZINE HCL 10 MG TABLET PO SCH (07:15)
[2019-02-01] MEDS: MAG HYDROX/AL HYDROX/SIMETH 30 ML ORAL.SUSP PO PRN (07:15)
[2019-02-01] MEDS: HYDROXYCHLOROQUINE 200 MG TABLET PO SCH ×2 (07:16→20:48)
[2019-02-01] MEDS: NAPROXEN 500 MG TABLET PO PRN (07:16)
[2019-02-01] MEDS: PSEUDOEPHEDRINE ER 120 MG TABLET.ER. PO SCH ×2 (07:16→20:48)
[2019-02-01 10:47] VITALS: BP 152/88
[2019-02-01 14:31] VITALS: BP 160/85
[2019-02-01 21:06] VITALS: BP 156/77
--- NOTE | 2019-02-01 23:03 | PN ---
DATE: 02/01/2019 ATTENDING PHYSICIAN: Dr. Cai. CHIEF COMPLAINT: Cough and pain. SUBJECTIVE: The patient is actually doing better. She has less congestion. She is still weak. The pain is improved, although she is still symptomatic. Her affect is very flat. She is not using as much narcotics as she has been. When I observed her without going to the room, she had her glasses on, she was not in any distress. She was texting on her cell phone. OBJECTIVE FINDINGS: VITAL SIGNS: She is afebrile. Her blood pressure today is 163/90 and her pulse is 75 and regular. Her room air saturations were 96%. She is on again room air. HEENT: Head is without trauma. Pupils are reactive. Sclerae was nonicteric. The oropharynx was clear. NECK: Supple. LUNGS: Better aeration, minimal rhonchi in the bases. CARDIOVASCULAR: Showed regular heart tones. No obvious gallops. Peripheral pulses are palpable and full. ABDOMEN: Soft, obese, protuberant. No organomegaly. Bowel sounds are normoactive. EXTREMITIES: Show no cyanosis or edema. NEUROLOGIC: Focally intact. Speech is fluent. Affect remains very flat. LABORATORY DATA: Chest x-ray from yesterday as noted. ASSESSMENT: 1. A 38-year-old female has community-acquired pneumonia. 2. Profound symptoms, which are improved. 3. History of lupus. 4. Pleurisy improving every day. 5. Sinus congestion improved with pseudoephedrine and Zyrtec. PLAN: 1. Continue antibiotics as ordered. 2. Decrease IV fluids. 3. Diet as tolerated. 4. Pain control. 5. Decrease Solu-Medrol to q. 12 hours. 6. We will assess her in the morning to see if she is stable for discharge. MONISHA CAI MD DR: KIANNA/ranjan JOB#: [id number] / [id number]
[2019-02-02] MEDS: ALBUTEROL SULFATE 2.5 MG/3 ML NEBU. NEB SCH ×2 (05:17→09:29)
[2019-02-02] MEDS: methylPREDNISolone SOD SUCC PF 125 MG/2 ML VIAL. IV SCH (05:34)
[2019-02-02] MEDS: HYDROmorphone PF 1 MG/ML DISP.SYRIN IVP PRN (05:35)
[2019-02-02 05:48] VITALS: BP 158/83
[2019-02-02] MEDS: LACTOBACILLUS RHAMNOSUS GG 1 CAPSULE. PO SCH (08:13)
[2019-02-02] MEDS: CETIRIZINE HCL 10 MG TABLET PO SCH (08:13)
[2019-02-02] MEDS: HYDROXYCHLOROQUINE 200 MG TABLET PO SCH (08:14)
[2019-02-02] MEDS: PSEUDOEPHEDRINE ER 120 MG TABLET.ER. PO SCH (08:14)
--- NOTE | 2019-02-02 20:53 | DS ---
DATE OF DISCHARGE: 02/02/2019 ATTENDING PHYSICIAN: Dr. Cai FINAL DISCHARGE DIAGNOSES: 1. Community-acquired pneumonia, right lower lobe, improved. 2. Significant pleurisy, symptomatic. 3. Generalized weakness. 4. Dehydration. 5. History of systemic lupus. HISTORY OF PRESENT ILLNESS: This is a 38-year-old female who had a 2-day history of anterior chest wall pain quite severe, dry, nonproductive cough and chest x-ray evidence of linear atelectasis and infiltrate in the right lower lobe. She was admitted with pneumonia and pleurisy. PHYSICAL EXAMINATION: Please see the dictated note. PERTINENT LABORATORY AND X-RAY STUDIES: Hemoglobin was 13.9 g/dL. She had white count initially 7400, repeated was up to 22,000. This is due to margination of white cells due to corticosteroid use. Chemistry panel shows stable creatinine, BUN and electrolytes. Nonfasting blood sugar is 130. The potassium, sodium and creatinine were all within normal range. Followup chest x-ray showed improvement in clearing of her right lower lobe infiltrate. COURSE IN THE HOSPITAL: The patient was admitted to the medical service. She was started on intravenous antibiotics. She did well. Steroids were administered judicious amounts and tapered slowly. Nebulizer therapy helped. She was managed with intravenous pain medicine and diet was advancing slowly as each day pass. Her symptoms are improved. She is much better. On the fifth hospital day, her vital signs were quite stable. She looked well. She is not complaining of headaches. She responded well to some Pseudoephedrine and Zyrtec for her sinus symptoms. BP was 150/80. She was afebrile. She was therefore discharged home with continuation of her Plaquenil and Vyvanse doses unchanged. I recommended cephalexin 500 mg p.o. t.i.d. for 7 more days, Zithromax 250 p.o. daily for 6 days, p.r.n. Lortab 7.5 mg every 6 hours as needed for pain and [id number] Claritin-D 10/240 daily. I have asked her to follow up with her primary care doctor in 1 week time and recheck and get a followup x-ray. The patient was then discharged from our hospital in stable condition with explicit instructions and followup care. TOTAL DISCHARGE TIME: 39 minutes. MONISHA CAI MD DR: KIANNA/ranjan JOB#: [id number] / [id number]
== END 2019-02-02 10:20 | disposition home or self-care (01) | DRG 194 ==
LOC: ER 10:12 → 1 SOUTH 14:17 → OBSVTOIN 22:04 → ICU 01-31 14:25
PROVIDERS: ADMIT Hospitalist; ATTEND Hospitalist
DX: J18.1 Lobar pneumonia, unspecified organism (principal); J98.11 Atelectasis; Z68.42 Body mass index [BMI] 45.0-49.9, adult; R07.81 Pleurodynia; E66.01 Morbid (severe) obesity due to excess calories; E86.0 Dehydration; F32.9 Major depressive disorder, single episode, unspecified; M32.9 Systemic lupus erythematosus, unspecified; Z87.891 Personal history of nicotine dependence; Z90.710 Acquired absence of both cervix and uterus; Z91.013 Allergy to seafood; Z88.8 Allergy status to other drugs, medicaments and biological substances; Z91.018 Allergy to other foods; Z91.010 Allergy to peanuts
CPT/HCPCS: 36415; 71046; 80053; 80307; 82550; 83690; 83735; 83880; 84484; 85007; 85025; 93005; 94640; G0378; G0379; J0696; J1170; J1885; J2060; J2405; J2920; J2930; J7613; J7620; J7030

== ENCOUNTER → 2019-02-05 | Outpatient (CLI) | payer OTHER ==
[2019-02-02 05:48] VITALS: BP 158/83
[~2019-02-05] MED LIST: ALBU2.5V8 INH; AZIT250T PO; HYDR115S2 PO; HYDR200T5 PO; LISD70CA5 PO
--- NOTE | 2019-02-05 12:41 | RAD ---
EXAM: PA and Lateral Views of the Chest DATE: 02/05/2019 12:00 AM INDICATION: Pneumonia COMPARISON: 01/30/2019, 01/28/2019 FINDINGS/ IMPRESSION: The heart is not enlarged. Mediastinal and hilar contours are normal. No focal parenchymal airspace opacity. No pleural effusion or pneumothorax. Electronically signed by: Chace Orellana MD (02/05/2019 12:38 PM) [facility]
== END | disposition home or self-care (01) ==
LOC: PMG 09:09
PROVIDERS: ATTEND Physician Assistant
DX: J18.9 Pneumonia, unspecified organism (principal)
CPT/HCPCS: 71046

== ENCOUNTER 2019-10-12 10:16 | Emergency (ER) | payer OTHER ==
[~2019-10-12] VITALS: Ht 152.4 cm; Wt 118.2 kg
[2019-10-12] MEDS ORDERED: IV NORMAL SALINE 1,000ML 1,000 ML IV ONE (11:00)
--- NOTE | 2019-10-12 11:04 | PHYS DOC ---
Past History Past Medical History: Pneumonia, Other Additional Past Medical Histor: lupus Past Surgical History: Hysterectomy Smoking: Quit Greater Than 1 Year Alcohol Use: None Drug Use: None Adult General Chief Complaint Chief Complaint: SHORTNESS OF BREATH HPI HPI 39-year-old female presents with concern for COVID 19. She has had rapidly increasing shortness of breath and cough for the last 2 days. 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 She was also pulled to do screening after there were positive patients at that facility. She has not been informed if she had direct contact with a positive patient, but does note that she has come in direct contact with other caregivers that had direct contact. The patient is more concerned that she may just have pneumonia. The last time that she felt the way she feels now she had bilateral pneumonia and had to be admitted to the hospital. The patient has lupus at baseline. She has not had a fever. She did not have a fever with her bilateral pneumonia either. Review of Systems Review of Systems Constitutional: Denies fever or chills [] Eyes: Denies change in visual acuity, redness, or eye pain [] HENT: Denies nasal congestion or sore throat [] Respiratory: Cough with shortness of breath [] Cardiovascular: No additional information not addressed in HPI [] GI: Denies abdominal pain, nausea, vomiting, bloody stools or diarrhea [] : Denies dysuria or hematuria [] Musculoskeletal: Denies back pain or joint pain [] Integument: Denies rash or skin lesions [] Neurologic: Denies headache, focal weakness or sensory changes [] Endocrine: Denies polyuria or polydipsia [] All other systems were reviewed and found to be within normal limits, except as documented in this note. Allergies Allergies Allergies Coded Allergies Type Severity Reaction Last Updated Verified Pork/Porcine Containing Products Allergy Intermediate 02/01/19 Yes Sugars, Metabolically Active Allergy Intermediate 02/01/19 Yes gluten Allergy Intermediate 02/01/19 Yes lactase Allergy Intermediate 02/01/19 Yes peanut Allergy Intermediate 02/01/19 Yes shellfish derived Allergy Mild Hives 01/28/19 Yes pork derived (porcine) Allergy Unknown 01/29/19 Yes Physical Exam Physical Exam Constitutional: Well developed, morbidly obese, well nourished, mild acute distress, non-toxic appearance. [] HENT: Normocephalic, atraumatic, bilateral external ears normal, oropharynx moist, no oral exudates, nose normal. [] Eyes: PERRLA, EOMI, conjunctiva normal, no discharge. [] Neck: Normal range of motion, no tenderness, supple, no stridor. [] Cardiovascular: Heart rate regular rhythm, no murmur [] Lungs & Thorax: Coughing. Bilateral breath sounds diminished [] Abdomen: Bowel sounds normal, soft, no tenderness, no masses, no pulsatile masses. [] Skin: Warm, dry, no erythema, no rash. [] Back: No tenderness, no CVA tenderness. [] Extremities: No tenderness, no cyanosis, no clubbing, ROM intact, no edema. [] Neurologic: Alert and oriented X 3, normal motor function, normal sensory function, no focal deficits noted. [] Psychologic: Affect normal, judgement normal, mood normal. [] Current Patient Data Vital Signs Vital Signs Date Time Temp Pulse Resp B/P (MAP) Pulse Ox O2 Delivery O2 Flow Rate FiO2 10/12/19 10:16 97.9 90 26 153/107 (122) 100 Room Air EKG EKG [] Radiology/Procedures Radiology/Procedures [] Impressions: CHEST AP ONLY History: Suspected COVID 19 Comparison: None. Findings: Single view of the chest is submitted. There is no infiltrate, pneumothorax, or effusion. The pericardial cardiac silhouette is within normal limits in size. Impression: 1. No infiltrate is identified by radiograph. Electronically signed by: Lizett Geiger MD (10/12/2019 11:16 AM) [facility] DICTATED AND SIGNED BY: LIZETT GEIGER MD DATE: 10/12/19 1116 CC: JANETH BRITO DO; NADIRA MORILLO ~ Course & Med Decision Making Course & Med Decision Making Pertinent Labs and Imaging studies reviewed. (See chart for details) The patient's chest x-ray is negative for pneumonia. Her influenza and rapid strep are negative. Given the patient's exposure in a healthcare setting with known positive patients and other exposed employees, I believe the patient should be tested for COVID 19. I have ordered this test. I have also directed the patient to self quarantine until she gets resolved or her symptoms have resolved for 3 days. Her oxygen saturation is 97 to 100% on room air. She does not meet criteria for admission at this time. Steroids are contraindicated if there is a possibility of coronavirus. I will give her an albuterol inhaler. She is stable for discharge at this time. [] Dina Disclaimer Dina Disclaimer This electronic medical record was generated, in whole or in part, using a voice recognition dictation system. Departure Departure: Impression: Primary Impression: COVID-19 Additional Impression: Cough Disposition: HOME, SELF-CARE Condition: STABLE Referrals: NADIRA MORILLO (PCP) Patient Instructions: Viral Syndrome Additional Instructions: Your coronavirus test is pending. You should self quarantine until you get a negative result for your symptoms free for at least 3 days. You can try the albuterol inhaler you were provided in the emergency room. Steroids are contraindicated. You may consider purchasing a pulse oximetry sensor for use at home. If your oxygen saturation at rest is below 94% you should call your doctor and consider returning to the emergency room. Problem Qualifiers JANETH BRITO DO Oct 12, 2019 11:04
[2019-10-12 11:09] LABS: BASO # 0.1 x10^3/uL (0.0-0.2); BASO % 1 % (0-3); EOS # 0.2 x10^3/uL (0.0-0.7); EOS % 2 % (0-3); HEMATOCRIT 42.2 % (36.0-47.0); HEMOGLOBIN 14.1 g/dL (12.0-15.5); LYMPH % 30 % (24-48); MEAN CORPUSCULAR HEMOGLOBIN 31 pg (25-35); MEAN CORPUSCULAR HGB CONC 33 g/dL (31-37); MEAN CORPUSCULAR VOLUME 91 fL (79-100); MONO # 0.4 x10^3/uL (0.0-1.1); MONO % 6 % (0-9); NEUT # 4.2 x10^3uL (1.8-7.7); NEUT % 61 % (31-73); PLATELET COUNT 271 x10^3/uL (140-400); RED BLOOD COUNT 4.62 x10^6/uL (3.50-5.40); RED CELL DISTRIBUTION WIDTH 13.5 % (11.5-14.5); WHITE BLOOD COUNT 6.9 x10^3/uL (4.0-11.0)
[2019-10-12 11:15] LABS: INFLUENZA A PATIENT NEGATIVE (NEGATIVE); INFLUENZA B PATIENT NEGATIVE (NEGATIVE)
[2019-10-12 11:17] VITALS: BP 139/52
--- NOTE | 2019-10-12 11:18 | RAD ---
CHEST AP ONLY History: Suspected COVID 19 Comparison: None. Findings: Single view of the chest is submitted. There is no infiltrate, pneumothorax, or effusion. The pericardial cardiac silhouette is within normal limits in size. Impression: 1. No infiltrate is identified by radiograph. Electronically signed by: Chu Shaikh MD (10/12/2019 11:16 AM) [facility]
[2019-10-12 11:19] LABS: CALCIUM 8.8 mg/dL (8.5-10.1); CREATININE 0.6 mg/dL (0.6-1.0); GFR 111.3; POTASSIUM 3.8 mmol/L (3.5-5.1)
[2019-10-12 11:25] LABS: ALBUMIN 3.7 g/dL (3.4-5.0); ALBUMIN/GLOBULIN RATIO 1.1 (1.0-1.7); TOTAL BILIRUBIN 0.2 mg/dL (0.2-1.0); TOTAL PROTEIN 7.1 g/dL (6.4-8.2)
[2019-10-12] MEDS ORDERED: ALBUTEROL SULFATE 8GM INHALER. INH ONE (12:00)
[2019-10-12] MEDS ORDERED: BENZONATATE 100 MG CAPSULE. PO ONE (12:30)
== END 2019-10-12 12:10 | disposition home or self-care (01) ==
LOC: ER 10:16
DX: R05 Cough (principal); Z20.828 Contact with and (suspected) exposure to other viral communicable diseases; Z87.891 Personal history of nicotine dependence; Z91.018 Allergy to other foods; Z91.010 Allergy to peanuts; Z91.011 Allergy to milk products; Z91.013 Allergy to seafood
CPT/HCPCS: 36415; 71045; 80053; 85025; 87070; 87635; 87804; 87880; 94640; 99284; J7613; 94664; J7030

== ENCOUNTER → 2020-01-21 | Outpatient (CLI) | payer OTHER ==
--- NOTE | 2020-01-21 15:30 | RAD ---
CHEST PA LATERAL History: Dyspnea COMPARISON: October 12, 2019 Findings: 2 views of the chest are submitted. There is no infiltrate, pneumothorax, or effusion. Pericardial cardiac silhouette is similar. Impression: 1. There is no radiographic evidence of acute cardiopulmonary disease. Electronically signed by: Chu Shaikh MD (01/21/2020 3:27 PM) [facility]
== END ==
LOC: DXRAD 09:50
PROVIDERS: ATTEND Physician Assistant
DX: R06.00 Dyspnea, unspecified (principal)
CPT/HCPCS: 71046

== ENCOUNTER 2020-02-27 13:06 | Emergency (ER) | payer OTHER ==
[~2020-02-27] VITALS: Ht 152.4 cm; Wt 124.0 kg
--- NOTE | 2020-02-27 13:59 | RAD ---
AP chest. HISTORY: Short of air, dry cough, Covid positive AP view was taken of the chest. Heart is normal in size. There is no effusion. There are no acute infiltrates. IMPRESSION: 1. No acute infiltrates. Electronically signed by: Dennis Graves MD (02/27/2020 1:56 PM) [id number]
--- NOTE | 2020-02-27 14:00 | PHYS DOC ---
Past History Past Medical History: COPD, Pneumonia, Other Additional Past Medical Histor: lupus Past Surgical History: Hysterectomy Smoking: Quit Greater Than 1 Year Alcohol Use: None Drug Use: None General Adult EDM: Chief Complaint: COUGH HPI: HPI: 39-year-old female past medical history of lupus, presents to the ED with complaints of cough and shortness of air for the past 4 days. Patient states she she had a covid test performed 8 days ago, result today was positive. Has had a history of pneumonia in the past and is concerned for this today. Ports no underlying lung disease, has never smoked tobacco, vapes a hookah. No history of cardiac disease or DVT or PEs. Review of systems: Review of Systems: Review of Systems: Constitutional: Denies fever or chills Eyes: Denies change in visual acuity HENT: Denies nasal congestion or sore throat Respiratory: Denies cough or shortness of breath Cardiovascular: Denies chest pain or edema GI: Denies abdominal pain, nausea, vomiting, bloody stools or diarrhea : Denies dysuria Musculoskeletal: Denies back pain or joint pain Integument: Denies rash Neurologic: Denies headache, focal weakness or sensory changes Endocrine: Denies polyuria or polydipsia Lymphatic: Denies swollen glands Psychiatric: Denies depression or anxiety Heart Score: Risk Factors: Risk Factors: DM, Current or recent (<one month) smoker, HTN, HLP, family history of CAD, obesity. Risk Scores: Score 0 - 3: 2.5% MACE over next 6 weeks - Discharge Home Score 4 - 6: 20.3% MACE over next 6 weeks - Admit for Clinical Observation Score 7 - 10: 72.7% MACE over next 6 weeks - Early Invasive Strategies Allergies: Allergies: Allergies Coded Allergies Type Severity Reaction Last Updated Verified Pork/Porcine Containing Products Allergy Intermediate 02/01/19 Yes lactase Allergy Intermediate 02/01/19 Yes peanut Allergy Intermediate 02/01/19 Yes shellfish derived Allergy Mild Hives 01/28/19 Yes pork derived (porcine) Allergy Unknown 01/29/19 Yes Physical Exam: PE: Constitutional: Well developed, well nourished, no acute distress, non-toxic appearance. [] HENT: Normocephalic, atraumatic, bilateral external ears normal, oropharynx moist, no oral exudates, nose normal. [] Eyes: PERRLA, EOMI, conjunctiva normal, no discharge. [] Neck: Normal range of motion, no tenderness, supple, no stridor. [] Cardiovascular:Heart rate regular rhythm, no murmur [] Lungs & Thorax: Bilateral breath sounds clear to auscultation [] Abdomen: Bowel sounds normal, soft, no tenderness, no masses, no pulsatile masses. [] Skin: Warm, dry, no erythema, no rash. [] Back: No tenderness, no CVA tenderness. [] Extremities: No tenderness, no cyanosis, no clubbing, ROM intact, no edema. [] Neurologic: Alert and oriented X 3, normal motor function, normal sensory function, no focal deficits noted. [] Psychologic: Affect normal, judgement normal, mood normal. [] Current Patient Data: Vital Signs: Vital Signs Date Time Temp Pulse Resp B/P (MAP) Pulse Ox O2 Delivery O2 Flow Rate FiO2 02/27/20 13:18 98.8 104 16 159/81 (107) 98 Room Air EKG: EKG: Sinus rhythm at 93 bpm, no axis deviation, normal intervals, T wave inversion lead III, no ST elevations or ST depressions Radiology/Procedures: Radiology/Procedures: [] Course & Med Decision Making: Course & Med Decision Making Pertinent Labs and Imaging studies reviewed. (See chart for details) Patient presents the ED with worsening cough for the past 3 or 4 days, denies any pleuritic chest pain or dyspnea at rest. We discussed in length her risk factors for PE-patient is aware we did not rule out this life-threatening di sease. Patient was primarily concerned that she had pneumonia. Chest x-ray is not showing any acute consolidation. Patient afebrile with no leukocytosis or lactic acidosis. Patient is not requiring any respiratory support or oxygen. Albuterol inhaler at home. D-dimer is in the upper limits of normal. Cannot PERC out patient given elevated heart rate in the low 110s on arrival-with heart rate in the upper 80s at time of discharge. Patient was given very strict ED return precautions for worsening chest pain, difficulties breathing, stroke sxs, increased work of breathing or hemoptysis (pe sxs). Encouraged urgent outpatient follow-up with PMD. Life-threatening processes were considered but are low suspicion at this time, given history and physical exam. All patient's questions were answered and pt was stable at time of discharge. Differential includes acute myocardial infarction, aortic dissection, congestive heart failure, esophageal injury including rupture, surgical abdomen, arrhythmia, cardiomyopathy, myocarditis, pericarditis, peptic ulcer disease, pneumomediastinum, pneumonia, pneumothorax, pulmonary embolus, unstable angina, rib fracture, contusion, pericardial tamponade or effusion, pulmonary contusion I spoken with the patient and her caregivers. I explained the patient's condition, diagnoses and treatment plan based on the information available to me at this time. I have answered the patient and her caregiver's questions and addressed any concerns. The patient and her caregivers have a good understanding of patient's diagnosis, condition and treatment plan as can be expected at this point. Vital signs have been stable. Patient's condition is stable and appropriate for discharge from the emergency department. Patient will pursue further outpatient evaluation with primary care physician or other designated or consulting physician as outlined in the discharge inst ructions. The patient and/or caregivers are agreeable to this plan of care and follow-up instructions have been explained in detail. The patient and/or caregivers have received these instructions in written form and have expressed an understanding of the discharge instructions. The patient and/or caregivers are aware that any significant change of condition or worsening of symptoms should prompt immediate return to this or the closest emergency department or call to 911. Dina Disclaimer: Dina Disclaimer: This electronic medical record was generated, in whole or in part, using a voice recognition dictation system. Departure Departure: Impression: Primary Impression: Cough Additional Impression: COVID-19 Disposition: 01 HOME/RESIDENCE PRIOR TO ADM Condition: STABLE Referrals: NADIRA MORILLO (PCP) Patient Instructions: Cough, Adult Additional Instructions: EMERGENCY DEPARTMENT GENERAL DISCHARGE INSTRUCTIONS THANK YOU for coming to [facility] Emergency Department (ED) today and trusting us with your care. We trust that you had a positive experience in our Emergency Department. If you wish to speak to the department Management you can contact the floral department specialist at . YOUR FOLLOW UP INSTRUCTIONS ARE FOLLOWS: Do you have a private doctor? If you do not have a private doctor, please ask for a resource list of physicians or clinics that may be able to assist you with follow up care. The Emergency Physician has interpreted your x-rays. The X-ray specialist will also review them. If there is a change in the findings you will be notified in 48 hours when at all possible. A lab test or lab culture may have been done, your results will be reviewed and you will be notified if you need a change in treatment. ADDITIONAL INSTRUCTIONS AND INFORMATION Your care today has been supervised by a physician who is specially trained in emergency care. Many problems require more than one evaluation for a complete diagnosis and treatment. We recommend that you schedule your follow up appointment as recommended to ensure complete treatment of your illness or injury. If you are unable to obtain follow up care and continue to have a problem, or if your condition worsens we recommend that you return to the ED. We are not able to safely determine your condition over the phone nor are we able to give sound medical advice over the phone. For these safety reasons, if you call for medical advice we will ask you to come to the ED for further evaluation If you have any questions regarding these discharge instructions please call the ED at . SAFETY INFORMATION In the interest of safety, wellness, and injury prevention; we encourage you to wear your seatbelt, if you smoke; quit smoking, and we encourage your family to use protective helmet for bicycling and other sporting events that present an increased risk for head injury. IF YOUR SYMPTOMS WORSEN OR NEW SYMPTOMS DEVELOP, OR YOU HAVE CONCERNS ABOUT YOUR CONDITION; OR IF YOUR CONDITION WORSENS WHILE YOU ARE WAITING FOR YOUR FOLLOW UP APPOINTMENT; EITHER CONTACT YOUR PRIMARY CARE DOCTOR, THE PHYSICIAN WHOSE NAME AND NUMBER YOU WERE GIVEN, OR RETURN TO THE ED IMMEDIATELY. Justification of Admission: Justification of Admission: Justification of Admission Dx: N/A MARIYA TRUJILLO DO Feb 27, 2020 14:00
[2020-02-27 14:01] LABS: BASO # 0.1 x10^3/uL (0.0-0.2); BASO % 2 % (0-3); EOS # 0.1 x10^3/uL (0.0-0.7); EOS % 2 % (0-3); HEMATOCRIT 43.2 % (36.0-47.0); HEMOGLOBIN 14.2 g/dL (12.0-15.5); LYMPH # 1.6 x10^3/uL (1.0-4.8); LYMPH % 37 % (24-48); MEAN CORPUSCULAR HEMOGLOBIN 30 pg (25-35); MEAN CORPUSCULAR HGB CONC 33 g/dL (31-37); MEAN CORPUSCULAR VOLUME 92 fL (79-100); MONO # 0.4 x10^3/uL (0.0-1.1); MONO % 10 % (0-9); NEUT # 2.1 x10^3uL (1.8-7.7); NEUT % 49 % (31-73); PLATELET COUNT 203 x10^3/uL (140-400); RED CELL DISTRIBUTION WIDTH 13.6 % (11.5-14.5); WHITE BLOOD COUNT 4.2 x10^3/uL (4.0-11.0)
[2020-02-27 14:08] LABS: CALCIUM 8.8 mg/dL (8.5-10.1); CREATININE 0.7 mg/dL (0.6-1.0); GFR 93.2; POTASSIUM 3.9 mmol/L (3.5-5.1)
--- NOTE | 2020-02-27 14:10 | EKG ---
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
[2020-02-27 14:16] LABS: ALBUMIN 3.9 g/dL (3.4-5.0); ALBUMIN/GLOBULIN RATIO 1.1 (1.0-1.7); TOTAL BILIRUBIN 0.2 mg/dL (0.2-1.0); TOTAL PROTEIN 7.5 g/dL (6.4-8.2)
[2020-02-27 15:01] VITALS: BP 156/81
== END 2020-02-27 15:07 | disposition home or self-care (01) ==
LOC: ER 13:06
DX: U07.1 COVID-19 (principal); J44.9 Chronic obstructive pulmonary disease, unspecified; Z87.891 Personal history of nicotine dependence; Z88.8 Allergy status to other drugs, medicaments and biological substances; Z91.011 Allergy to milk products; Z88.5 Allergy status to narcotic agent; Z91.010 Allergy to peanuts; Z91.013 Allergy to seafood
CPT/HCPCS: 36415; 71045; 80053; 83605; 84484; 85025; 85379; 87040; 93005; 99285

== ENCOUNTER → 2020-06-16 | Outpatient (CLI) | payer OTHER ==
--- NOTE | 2020-06-16 16:39 | RAD ---
AP and Lateral Views of the Chest 06/16/2020 12:00 AM Indication: Reason: SHORT OF BREATH, COUGH / Spl. Instructions: / History: Comparison: Chest radiograph February 27, 2020 Findings: There is no focal consolidation or infiltrate identified. The cardiomediastinal silhouette is within normal limits. There is no evidence of pneumothorax or pleural effusion. No acute osseous abnormalities are identified. Impression: No evidence of acute cardiopulmonary process. Electronically signed by: Gwyn Alonzo MD (06/16/2020 4:36 PM) [id number]
== END ==
LOC: PMG 16:19
PROVIDERS: ATTEND Physician Assistant
DX: R05 Cough (principal)
CPT/HCPCS: 71046

== ENCOUNTER → 2021-03-01 | Outpatient (CLI) | payer OTHER ==
--- NOTE | 2021-03-01 15:45 | RAD ---
3 views left foot dated 03/01/2021. No comparison available. CLINICAL INDICATION: Left foot pain. FINDINGS: 3 views left foot show normal bony alignment. No displaced fracture. No periostitis or bone destructi on. No acute osseous or articular abnormality. IMPRESSION: No acute findings. Electronically signed by: Bryson Dyer MD (03/01/2021 3:42 PM) [facility]
== END ==
LOC: RAD 15:14
PROVIDERS: ATTEND Nurse Practitioner Family
DX: S99.822A Other specified injuries of left foot, initial encounter (principal); Y93.01 Activity, walking, marching and hiking; Y93.89 Activity, other specified; Y92.89 Other specified places as the place of occurrence of the external cause; Y99.8 Other external cause status
CPT/HCPCS: 73630

== ENCOUNTER → 2021-04-05 | Outpatient (CLI) | payer OTHER ==
--- NOTE | 2021-04-06 10:03 | RAD ---
XR LUMBAR SPINE 4+V History: Chronic back pain Comparison: CT abdomen and pelvis 01/19/2017. Technique: 5 views of the lower thoracic and lumbar spine. Findings: There are 5 non-rib bearing lumbar vertebral segments. There is no evidence of acute fracture. Mild anterior wedging of L1 appear similar to comparison from 2017 No destructive osseous lesions. Alignment is normal. Mild lower lumbar facet hypertrophy. Mild disc space narrowing L5-S1. Multilevel mild degenerative endplate changes, greatest at T12-L1. Sacroiliac joints are unremarkable. Soft tissues are unremarkable. IMPRESSION: 1. No acute findings in the lumbar spine. Mild multilevel spondylosis Electronically signed by: John Shields MD (04/06/2021 10:01 AM) [id number]
== END ==
LOC: RAD 16:03
PROVIDERS: ATTEND Physician Assistant
DX: M47.816 Spondylosis without myelopathy or radiculopathy, lumbar region (principal); M47.815 Spondylosis without myelopathy or radiculopathy, thoracolumbar region; M48.07 Spinal stenosis, lumbosacral region
CPT/HCPCS: 72110

== ENCOUNTER → 2021-06-20 | Outpatient (CLI) | payer OTHER ==
--- NOTE | 2021-06-20 13:11 | RAD ---
EXAMINATION: RIGHT LOWER EXTREMITY - UNILATERAL VENOUS DOPPLER. Technique: Ultrasound evaluation of the right lower extremity was performed from the groin to the upp er calf with pickett scale, spectral and color doppler evaluation. Indication: Leg swelling Comparison: None Findings: There is normal venous flow and compressibility of right common femoral vein, femoral vein, popliteal vein, and visualized proximal calf veins. Impression: No evidence for deep vein thrombosis of right lower extremity from the level of the calf veins to the groins. Electronically signed by: Chace Orellana MD (06/20/2021 1:09 PM) [facility]
== END ==
LOC: US 12:16
PROVIDERS: ATTEND Nurse Practitioner Family
DX: M79.661 Pain in right lower leg (principal)
CPT/HCPCS: 93971